=== PATIENT | male | born 1975 | race Two or more races ===

== ENCOUNTER 2017-06-15 13:24 | Emergency (ER) | payer SELFPAY ==
[2017-06-15] MEDS ORDERED: Aspirin 81 MG Tab.Chew PO ONE (13:27)
[2017-06-15] MEDS ORDERED: Sodium Chloride 0.9% 1,000 ML IV ONE ×2 (13:27→14:12)
--- NOTE | 2017-06-15 13:28 | EDM.PDOC ---
ED HPI GENERAL MEDICAL PROBLEM - General Chief Complaint: Chest Pain Stated Complaint: CHEST PAIN Time Seen by Provider: 06/15/17 13:28 Source of Information: Reports: Patient - History of Present Illness INITIAL COMMENTS - FREE TEXT/NARRATIVE: HISTORY AND PHYSICAL: History of present illness: []Patient with history of previous WI and CABG presents with chest pain for 30 minutes radiating to left arm rates 4 out of 10 patient states he is somewhat short of breath no diaphoresis Patient has been medication noncompliant over the last 2 weeks No fever nausea vomiting chills sweats no headache dizziness or palpitation no bowel or urine symptoms patient does state he feels somewhat lightheaded Review of systems: As per history of present illness and below otherwise all systems reviewed and negative. Past medical history: As per history of present illness and as reviewed below otherwise noncontributory. Surgical history: As per history of present illness and as reviewed below otherwise noncontributory. Social history: No reported history of drug or alcohol abuse. Family history: As per history of present illness and as reviewed below otherwise noncontributory. Physical exam: HEENT: Atraumatic, normocephalic, pupils reactive, negative for conjunctival pallor or scleral icterus, mucous membranes moist, throat clear, neck supple, nontender, trachea midline. Lungs: Clear to auscultation, breath sounds equal bilaterally, chest nontender. Heart: S1S2, regular, negative for clicks, rubs, or JVD. Abdomen: Soft, nondistended, nontender. Negative for masses or hepatosplenomegaly. Negative for costovertebral tenderness. Pelvis: Stable nontender. Genitourinary: Deferred. Rectal: Deferred. Extremities: Atraumatic, negative for cords or calf pain. Neurovascular unremarkable. Neuro: Awake, alert, oriented. Cranial nerves II through XII unremarkable. Cerebellum unremarkable. Motor and sensory unremarkable throughout. Exam nonfocal. Diagnostics: []Lab as below EKG Chest 1 view Therapeutics: []Normal saline 1 L Aspirin 324 mg chewable Lopressor 5 mg IV Nitroglycerin 0.4 sublingual Regular insulin 10 units IV and subcutaneous full of 20 units Impression: ACS Hyperglycemia Chronic history of baseline Definitive disposition and diagnosis as appropriate pending reevaluation and review of above. Left Chest Pain Score (Numeric/FACES): 8 - Related Data Allergies Allergy/AdvReac Type Severity Reaction Status Date / Time codeine Allergy Nausea Verified 06/15/17 13:48 tramadol Allergy Nausea Verified 06/15/17 13:48 Home Meds: Home Meds . [Unable to Verify Home Med List] 06/15/17 [History] ED ROS GENERAL - Review of Systems Review Of Systems: ROS reveals no pertinent complaints other than HPI. ED EXAM, GENERAL - Physical Exam Exam: See Below Course - Vital Signs Last Recorded V/S: Last Vital Signs Temp 35.5 C 06/15/17 13:24 Pulse 101 H 06/15/17 14:21 Resp 20 06/15/17 13:50 BP 129/80 06/15/17 14:21 Pulse Ox 97 06/15/17 13:50 - Orders/Labs/Meds Orders: Active Orders 24 hr Category Date Time Status EKG Documentation Completion [RC] STAT Care 06/15/17 13:27 Active UA W/MICROSCOPIC [URIN] Stat Lab 06/15/17 13:27 Uncollected Sodium Chloride 0.9% [Normal Saline] 1,000 ml Med 06/15/17 14:12 Active IV STAT Medication Orders Sodium Chloride (Normal Saline) 1,000 mls @ 999 mls/hr IV STAT ONE Stop: 06/15/17 15:12 Labs: Laboratory Tests 06/15/17 06/15/17 06/15/17 Range/Units 13:30 13:30 13:30 WBC 8.64 (4.0-11.0) K/uL RBC 5.31 (4.50-5.90) M/uL Hgb 15.4 (13.0-17.0) g/dL Hct 44.3 (38.0-50.0) % MCV 83.4 (80.0-98.0) fL MCH 29.0 (27.0-32.0) pg MCHC 34.8 (31.0-37.0) g/dL RDW Std Deviation 44.9 (28.0-62.0) fl RDW Coeff of Amrita 15 (11.0-15.0) % Plt Count 273 (150-400) K/uL MPV 9.90 (7.40-12.00) fL Neut % (Auto) 65.0 (48.0-80.0) % Lymph % (Auto) 25.2 (16.0-40.0) % [place] % (Auto) 6.6 (0.0-15.0) % Eos % (Auto) 2.7 (0.0-7.0) % Baso % (Auto) 0.5 (0.0-1.5) % Neut # (Auto) 5.6 (1.4-5.7) K/uL Lymph # (Auto) 2.2 (0.6-2.4) K/uL [place] # (Auto) 0.6 (0.0-0.8) K/uL Eos # (Auto) 0.2 (0.0-0.7) K/uL Baso # (Auto) 0.0 (0.0-0.1) K/uL Nucleated RBC % 0.0 /100WBC Nucleated RBCs # 0 K/uL INR (0.86-1.11) Sodium 136 (136-146) mmol/L Potassium 4.5 (3.5-5.1) mmol/L Chloride 102 (98-110) mmol/L Carbon Dioxide 22 (21-31) mmol/L BUN 11 (6.0-23.0) mg/dL Creatinine 1.3 (0.6-1.5) mg/dL Est Cr Clr Drug Dosing 73.27 mL/min Estimated GFR (MDRD) > 60.0 ml/min Glucose 531 H* (60-110) mg/dL Calcium 9.2 (8.8-10.8) mg/dL Total Bilirubin 0.8 (0.1-1.5) mg/dL AST 12 (5-40) IU/L ALT 17 (8-54) IU/L Alkaline Phosphatase 150 (40-150) Troponin I < 0.10 (0.0-0.29) NG/ML B-Natriuretic Peptide (<100) PG/ML Total Protein 7.4 (6.0-8.0) g/dL Albumin 3.9 (3.5-5.0) g/dL Globulin 3.5 (2.0-3.5) g/dL Albumin/Globulin Ratio 1.1 L (1.3-2.8) 06/15/17 06/15/17 Range/Units 13:30 13:30 WBC (4.0-11.0) K/uL RBC (4.50-5.90) M/uL Hgb (13.0-17.0) g/dL Hct (38.0-50.0) % MCV (80.0-98.0) fL MCH (27.0-32.0) pg MCHC (31.0-37.0) g/dL RDW Std Deviation (28.0-62.0) fl RDW Coeff of Amrita (11.0-15.0) % Plt Count (150-400) K/uL MPV (7.40-12.00) fL Neut % (Auto) (48.0-80.0) % Lymph % (Auto) (16.0-40.0) % [place] % (Auto) (0.0-15.0) % Eos % (Auto) (0.0-7.0) % Baso % (Auto) (0.0-1.5) % Neut # (Auto) (1.4-5.7) K/uL Lymph # (Auto) (0.6-2.4) K/uL [place] # (Auto) (0.0-0.8) K/uL Eos # (Auto) (0.0-0.7) K/uL Baso # (Auto) (0.0-0.1) K/uL Nucleated RBC % /100WBC Nucleated RBCs # K/uL INR 0.91 (0.86-1.11) Sodium (136-146) mmol/L Potassium (3.5-5.1) mmol/L Chloride (98-110) mmol/L Carbon Dioxide (21-31) mmol/L BUN (6.0-23.0) mg/dL Creatinine (0.6-1.5) mg/dL Est Cr Clr Drug Dosing mL/min Estimated GFR (MDRD) ml/min Glucose (60-110) mg/dL Calcium (8.8-10.8) mg/dL Total Bilirubin (0.1-1.5) mg/dL AST (5-40) IU/L ALT (8-54) IU/L Alkaline Phosphatase (40-150) Troponin I (0.0-0.29) NG/ML B-Natriuretic Peptide 188 H (<100) PG/ML Total Protein (6.0-8.0) g/dL Albumin (3.5-5.0) g/dL Globulin (2.0-3.5) g/dL Albumin/Globulin Ratio (1.3-2.8) Meds: Medications Generic Name Dose Route Start Last Admin Trade Name Freq PRN Reason Stop Dose Admin Sodium Chloride 1,000 mls @ 999 mls/hr 06/15/17 14:12 Normal Saline IV 06/15/17 15:12 STAT ONE Discontinued Medications Generic Name Dose Route Start Last Admin Trade Name Freq PRN Reason Stop Dose Admin Aspirin 324 mg 06/15/17 13:27 06/15/17 13:53 Aspirin PO 06/15/17 13:28 324 mg ONETIME ONE Administration Enoxaparin Sodium 100 mg 06/15/17 14:44 Lovenox SUBCUT 06/15/17 14:45 ONETIME ONE Sodium Chloride 1,000 mls @ 999 mls/hr 06/15/17 13:27 06/15/17 13:52 Normal Saline IV 06/15/17 14:27 999 mls/hr STAT ONE Administration Insulin Human Regular 10 unit 06/15/17 14:09 06/15/17 14:18 Novolin R IVPUSH 06/15/17 14:10 10 units ONETIME ONE Administration Protocol Insulin Human Regular 10 unit 06/15/17 14:10 06/15/17 14:19 Novolin R SUBCUT 06/15/17 14:11 10 units NOW STA Administration Protocol Metoprolol Tartrate 5 mg 06/15/17 13:41 06/15/17 14:21 Lopressor IVPUSH 06/15/17 13:42 5 mg ONETIME ONE Administration Nitroglycerin 0.4 mg 06/15/17 13:31 06/15/17 14:04 Nitrostat SL 06/15/17 13:42 0.4 mg Q5M PRN Administration Chest Pain Departure - Departure Time of Disposition: 14:48 Disposition: DC/Tfer to Other 70 Condition: Fair Clinical Impression: Acute coronary syndrome, Hyperglycemia - Discharge Information Forms: ED Department Discharge - My Orders Last 24 Hours: My Active Orders 06/15/17 13:27 EKG Documentation Completion [RC] STAT UA W/MICROSCOPIC [URIN] Stat 06/15/17 14:12 Sodium Chloride 0.9% [Normal Saline] 1,000 ml IV STAT - Assessment/Plan Last 24 Hours: My Active Orders 06/15/17 13:27 EKG Documentation Completion [RC] STAT UA W/MICROSCOPIC [URIN] Stat 06/15/17 14:12 Sodium Chloride 0.9% [Normal Saline] 1,000 ml IV STAT
[2017-06-15] MEDS ORDERED: Metoprolol Tartrate 5 MG in Sodium Chloride 0.9% 50 ML IV ONE (13:31)
[2017-06-15] MEDS ORDERED: Metoprolol Tartrate 5 MG/5 ML SDV IVPUSH ONE (13:41)
[2017-06-15] MEDS: Nitroglycerin 0.4 MG Tab.SL SL PRN ×3 (13:52→14:04)
--- NOTE | 2017-06-15 13:52 | CR ---
EXAMINATION: Portable chest radiograph. HISTORY: Pain. FINDINGS: The trachea is midline. The cardiomediastinal silhouette is within normal limits. No pulmonary infil trates, effusions or pneumothorax. Median sternotomy wires noted. Osseous structures appear unremarkable. IMPRESSION: No acute cardiopulmonary process.
[2017-06-15 14:05] LABS: CHLORIDE,CL 102 mmol/L (98-110); SODIUM,NA 136 mmol/L (136-146)
[2017-06-15] MEDS ORDERED: Insulin Regular, Human 100 Units/ML 10 ML Vial IVPUSH ONE (14:09)
[2017-06-15] MEDS ORDERED: Insulin Regular, Human 100 Units/ML 10 ML Vial SUBCUT STA (14:10)
[2017-06-15] MEDS ORDERED: Enoxaparin 100 MG/1 ML Syringe SUBCUT ONE (14:44)
[2017-06-15 16:37] VITALS: BP 121/82
== END 2017-06-15 16:08 | disposition other institution (70) ==
LOC: MW.ED 13:24
DX: I24.9 Acute ischemic heart disease, unspecified (principal); R73.9 Hyperglycemia, unspecified; I25.2 Old myocardial infarction; Z95.1 Presence of aortocoronary bypass graft; Z88.5 Allergy status to narcotic agent
CPT/HCPCS: 36415; 71010; 80053; 81001; 82962; 83880; 84484; 85025; 85610; 93005; 96361; 96372; 96374; 96375; 99285; A9270; J1650; J1815; J7040; 99284